=== PATIENT | female | born 1995 | race Caucasian/White ===

== ENCOUNTER 2016-09-17 13:29 | Emergency (ER) | payer OTHER ==
[2016-09-17 15:02] VITALS: BP 117/61
--- NOTE | 2016-09-17 15:20 | UC ---
Throat Pain/Nasal Terence HPI - HPI Summary HPI Summary: ST, sneezing, throat-clearing, chills, JADE starting 4 days ago. Would like to know if she can return to work tomorrow. - History of Current Complaint Chief Complaint: UCGeneralIllness Stated Complaint: FEVER, SORE THROAT Time Seen by Provider: 09/17/16 15:05 Hx Obtained From: Patient Hx Last Menstrual Period: 09/04/16 ?: No Onset/Duration: Gradual Onset, Lasting Days Severity: Mild Cough: Nonproductive Associated Signs & Symptoms: Positive: Nasal Discharge. Negative: Fever, Vomiting, Rash - Allergies/Home Medications Allergies/Adverse Reactions: Allergies Allergy/AdvReac Type Severity Reaction Status Date / Time No Known Allergies Allergy Verified 06/28/12 14:40 Home Medications: Home Medications Norethindrone Acet & Eth Estra [Microgestin 1.5/30 1.5-30 mg-Mcg] 1 tab PO DAILY 09/17/16 [History Confirmed 09/17/16] PMH/Surg Hx/FS Hx/Imm Hx Respiratory History Of: Reports: Asthma - Surgical History Surgical History: None - Family History Known Family History: Positive: Hypertension - Social History Occupation: Employed Full-time Lives: With Family Alcohol Use: None Substance Use Type: None Smoking Status (MU): Never Smoked Tobacco - Immunization History Vaccination Up to Date: Yes Review of Systems Constitutional: Chills Skin: Negative Eyes: Negative ENT: Sore Throat, Nasal Discharge Respiratory: Cough Cardiovascular: Negative Gastrointestinal: Negative Genitourinary: Negative Motor: Negative Neurovascular: Negative Musculoskeletal: Negative Neurological: Negative Psychological: Negative All Other Systems Reviewed And Are Negative: Yes Physical Exam Triage Information Reviewed: Yes Appearance: Well-Appearing, No Pain Distress, Obese Vital Signs: Initial Vital Signs Temp 98.7 F 09/17/16 14:56 Pulse 89 09/17/16 14:56 Resp 16 09/17/16 14:56 BP 117/61 09/17/16 14:56 Pulse Ox 100 09/17/16 14:56 Vital Signs Reviewed: Yes Eye Exam: Normal, Other - PERRL Eyes: Positive: Conjunctiva Clear ENT: Positive: Pharynx normal, Nasal congestion, TMs normal. Negative: Pharyngeal erythema, Tonsillar swelling, Tonsillar exudate Dental Exam: Normal Neck exam: Normal Neck: Positive: Supple, Nontender, No Lymphadenopathy Respiratory Exam: Normal Respiratory: Positive: Chest non-tender, Lungs clear, Normal breath sounds, No respiratory distress, No accessory muscle use Cardiovascular Exam: Normal Cardiovascular: Positive: RRR, No Murmur Musculoskeletal Exam: Normal Neurological Exam: Normal Psychological Exam: Normal Skin Exam: Normal Throat Pain/Nasal Course/Dx - Differential Dx/Diagnosis Provider Diagnoses: URI, likely viral Discharge - Discharge Plan Condition: Stable Disposition: HOME Patient Education Materials: Upper Respiratory Infection (ED) Referrals: Mehul May MD [Primary Care Provider] - If Needed Additional Instructions: Rapid strep negative. Call or return if you develop increasing fever, shortness of breath, chest pain , bloody sputum, or otherwise worsen. If you have not improved at all after several days, contact your primary care physician or return here.
== END 2016-09-17 15:22 | disposition home or self-care (01) ==
LOC: UCCORT 13:29
DX: J06.9 Acute upper respiratory infection, unspecified (principal); E66.9 Obesity, unspecified
CPT/HCPCS: 87651; 99211; G0463

== ENCOUNTER 2016-10-16 15:06 | Emergency (ER) | payer OTHER ==
[2016-10-16 15:45] VITALS: BP 131/72
--- NOTE | 2016-10-16 16:03 | UC ---
Throat Pain/Nasal Terence HPI - HPI Summary HPI Summary: complaint of nasal congestion and cough that started approx 5 days ago intermittent sore throat intermittent sinus pressure post nasal drip wheezing and cough is worse at night using her albuterol inhaler approx2-3xday since she has been sick denies fever and chills, ear pain taking OTC cough and cold medicine, mucinex - History of Current Complaint Chief Complaint: UCRespiratory Stated Complaint: COUGH Time Seen by Provider: 10/16/16 15:47 Hx Obtained From: Patient Hx Last Menstrual Period: 2 wks ago - Allergies/Home Medications Allergies/Adverse Reactions: Allergies Allergy/AdvReac Type Severity Reaction Status Date / Time No Known Allergies Allergy Verified 10/16/16 15:45 PMH/Surg Hx/FS Hx/Imm Hx Previously Healthy: Yes Respiratory History Of: Reports: Asthma - Surgical History Surgical History: None - Family History Known Family History: Positive: Hypertension Negative: Cardiac Disease, Diabetes - Social History Occupation: Employed Full-time Lives: With Family Alcohol Use: None Substance Use Type: None Smoking Status (MU): Never Smoked Tobacco - Immunization History Vaccination Up to Date: Yes Review of Systems Constitutional: Negative Skin: Negative Eyes: Negative ENT: Sore Throat, Nasal Discharge Respiratory: Cough Cardiovascular: Negative Gastrointestinal: Negative Genitourinary: Negative Motor: Negative Neurovascular: Negative Musculoskeletal: Negative Neurological: Negative Psychological: Negative All Other Systems Reviewed And Are Negative: Yes Physical Exam Triage Information Reviewed: Yes Appearance: No Pain Distress, Well-Nourished Vital Signs: Initial Vital Signs Temp 97.4 F 10/16/16 15:41 Pulse 86 10/16/16 15:41 Resp 18 10/16/16 15:41 BP 131/72 10/16/16 15:41 Pulse Ox 100 10/16/16 15:41 Vital Signs Reviewed: Yes Eyes: Positive: Conjunctiva Clear ENT: Positive: Pharyngeal erythema, Nasal congestion, Nasal drainage, TMs normal Neck: Positive: No Lymphadenopathy Respiratory: Positive: Decreased breath sounds - at the bases, Wheezing Cardiovascular: Positive: RRR, No Murmur, Pulses Normal Abdomen Description: Positive: Nontender, Soft Bowel Sounds: Positive: Present Musculoskeletal: Positive: No Edema Neurological Exam: Normal Psychological Exam: Normal Skin Exam: Normal Re-Evaluation - Re-Evaluation First Eval Re-Evaluation Time: 16:20 Change: Improved Throat Pain/Nasal Course/Dx - Differential Dx/Diagnosis Differential Diagnosis/HQI/PQRI: Pharyngitis, Sinusitis, URI, Other - asthma exacerbation Provider Diagnoses: asthma exacerbation Discharge - Discharge Plan Condition: Stable Disposition: HOME Prescriptions: Azithromycin TAB* [Zithromax TAB (Z-MARCOS) 250 mg #6 tabs] 2 tab PO .TODAY, THEN 1 DAILY #1 marcos predniSONE TAB* [Deltasone TAB*] 50 mg PO DAILY #5 tab Patient Education Materials: Asthma (ED) Referrals: Mehul May MD [Primary Care Provider] - Additional Instructions: Please take antibiotic and prednisone as directed Use your albuterol inhaler every 4-6 hours when needed for wheezing, shortness of breath or uncontrolled coughing. Increase fluids and rest Take acetaminophen or ibuprofen for fever or pain Please review your discharge instructions. If your symptoms do not improve please call your primary care provider or return to urgent care.
[2016-10-16] MEDS ORDERED: Albuterol/Ipratropium NEB.SOL* Albuterol 2.5 MG/Ipratropium 0.5 MG 3 ML INH ONE (16:05)
== END 2016-10-16 16:29 | disposition home or self-care (01) ==
LOC: UCEAST 15:06
DX: J45.901 Unspecified asthma with (acute) exacerbation (principal)
CPT/HCPCS: 99212; A9270-GY; G0463

== ENCOUNTER 2017-08-31 10:47 | Emergency (ER) | payer BC, OTHER ==
[2017-08-31 12:43] VITALS: BP 114/67
--- NOTE | 2017-08-31 13:01 | UC ---
Throat Pain/Nasal Terence HPI - HPI Summary HPI Summary: Patient has had increased sinus pressure and ear pain, some cough, but afebrile. she may be . - History of Current Complaint Chief Complaint: UCRespiratory Stated Complaint: SINUS Time Seen by Provider: 08/31/17 12:49 Hx Obtained From: Patient Hx Last Menstrual Period: 07/07/17 ?: No - unknown Onset/Duration: Sudden Onset, Lasting Days Severity: Moderate Pain Intensity: 6 Cough: Nonproductive Associated Signs & Symptoms: Positive: Dysphagia, Sinus Discomfort, Nasal Discharge - Allergies/Home Medications Allergies/Adverse Reactions: Allergies Allergy/AdvReac Type Severity Reaction Status Date / Time No Known Allergies Allergy Verified 08/31/17 12:32 Home Medications: Home Medications Cetirizine* [ZyrTEC 10 MG TAB*] 10 mg PO QPM 08/31/17 [History Confirmed ] Fluticasone Furoate-Vilanterol [Breo Ellipta 200-25 Mcg/INH] 1 inh IN DAILY [History Confirmed 08/31/17] Ibuprofen [Ibuprofen 200 MG] 800 mg PO Q8HR PRN 08/31/17 [History Confirmed ] PMH/Surg Hx/FS Hx/Imm Hx Previously Healthy: Yes - Surgical History Surgical History: None - Family History Known Family History: Positive: Hypertension Negative: Cardiac Disease, Diabetes - Social History Alcohol Use: Rare Substance Use Type: None Smoking Status (MU): Never Smoked Tobacco - Immunization History Vaccination Up to Date: Yes Review of Systems Constitutional: Negative Skin: Negative Eyes: Negative ENT: Sore Throat, Ear Ache, Nasal Discharge, Sinus Congestion Respiratory: Cough Cardiovascular: Negative Gastrointestinal: Negative Genitourinary: Negative Motor: Negative Neurovascular: Negative Musculoskeletal: Negative Neurological: Headache Psychological: Negative Is Patient Immunocompromised?: No All Other Systems Reviewed And Are Negative: Yes Physical Exam Triage Information Reviewed: Yes Appearance: Ill-Appearing, Pain Distress, Obese Vital Signs: Initial Vital Signs Temp 99 F 08/31/17 12:36 Pulse 80 08/31/17 12:36 Resp 18 08/31/17 12:36 BP 114/67 08/31/17 12:36 Pulse Ox 98 08/31/17 12:36 Vital Signs Reviewed: Yes Eye Exam: Normal ENT: Positive: Pharyngeal erythema, TM bulging, TM dull - left ear, serous otitis in right Dental Exam: Normal Neck exam: Normal Neck: Positive: Supple, Nontender, No Lymphadenopathy Respiratory Exam: Normal Respiratory: Positive: Chest non-tender, Lungs clear, Normal breath sounds Cardiovascular Exam: Normal Cardiovascular: Positive: RRR, No Murmur, Pulses Normal Abdominal Exam: Normal Abdomen Description: Positive: Nontender, No Organomegaly, Soft Bowel Sounds: Positive: Present Musculoskeletal Exam: Normal Neurological Exam: Normal Psychological Exam: Normal Skin Exam: Normal Throat Pain/Nasal Course/Dx - Course Course Of Treatment: hx obtained, exam performed ,meds reviewed, UA obtained, treated for sinusitis - Differential Dx/Diagnosis Differential Diagnosis/HQI/PQRI: Laryngitis, Otitis Media, Pharyngitis, Sinusitis, URI Provider Diagnoses: sinusitis Discharge - Discharge Plan Condition: Stable Disposition: HOME Patient Education Materials: Sinusitis (ED) Referrals: KEMAL Jones [Primary Care Provider] - Additional Instructions: 1. Take the medication as prescribed. 2. YOur test was negative 3. Increase fluid intake and get plenty of rest.
== END 2017-08-31 13:34 | disposition home or self-care (01) ==
LOC: UCCORT 10:47
DX: J32.9 Chronic sinusitis, unspecified (principal); E66.9 Obesity, unspecified; Z32.02 Encounter for pregnancy test, result negative
CPT/HCPCS: 84702; 99212; G0463

== ENCOUNTER 2018-03-20 16:52 | Emergency (ER) | payer BC ==
[2018-03-20 17:32] VITALS: BP 140/73
--- NOTE | 2018-03-20 17:44 | UC ---
Throat Pain/Nasal Terence HPI - HPI Summary HPI Summary: pt presents with c/o nasal congestion, cough, sinus pressure and pain X 10 days. Pt states that symptoms have worsened over the last two to three days and "nothing is working" otc to "make her feel better". Pt reports that she takes a daily antihistamine, was taking nyquil, dayquil combination with no improvement. - History of Current Complaint Chief Complaint: UCRespiratory Stated Complaint: SINUS COMPLAINT (X 1 WEEK) Time Seen by Provider: 03/20/18 17:25 Hx Obtained From: Patient Hx Last Menstrual Period: 03/16/18 ?: No Onset/Duration: Sudden Onset, Lasting Weeks, Still Present, Worse Since - onset Severity: Moderate Pain Intensity: 5 Cough: Productive Associated Signs & Symptoms: Positive: Sinus Discomfort Related History: Seasonal Allergies - Epiglottits Risk Factors Epiglottis Risk Factors: Negative - Allergies/Home Medications Allergies/Adverse Reactions: Allergies Allergy/AdvReac Type Severity Reaction Status Date / Time No Known Allergies Allergy Verified 03/20/18 17:32 Home Medications: Home Medications Guaifen/Phenyleph/Acetaminophn [Severe Sinus Congest-Pain Cplt] 2 tab PO ONCE PRN 03/20/18 [History Confirmed 03/20/18] PMH/Surg Hx/FS Hx/Imm Hx Previously Healthy: Yes - Surgical History Surgical History: None - Family History Known Family History: Positive: Hypertension Negative: Cardiac Disease, Diabetes - Social History Occupation: Employed Full-time Lives: With Family Alcohol Use: Rare Substance Use Type: None Smoking Status (MU): Never Smoked Tobacco Have You Smoked in the Last Year: No - Immunization History Vaccination Up to Date: Yes Review of Systems Constitutional: Negative Skin: Negative Eyes: Negative ENT: Sinus Congestion, Sinus Pain/Tenderness Respiratory: Cough Cardiovascular: Negative Gastrointestinal: Negative Genitourinary: Negative Motor: Negative Neurovascular: Negative Musculoskeletal: Negative Neurological: Headache Psychological: Negative Is Patient Immunocompromised?: No All Other Systems Reviewed And Are Negative: Yes Physical Exam Triage Information Reviewed: Yes Appearance: Well-Appearing Vital Signs: Initial Vital Signs Temp 97.9 F 03/20/18 17:26 Pulse 88 03/20/18 17:26 Resp 17 03/20/18 17:26 BP 140/73 03/20/18 17:26 Pulse Ox 99 03/20/18 17:26 Vital Signs Reviewed: Yes Eye Exam: Normal ENT: Positive: Sinus tenderness Dental Exam: Normal Neck exam: Normal Respiratory Exam: Normal Cardiovascular Exam: Normal Musculoskeletal Exam: Normal Neurological Exam: Normal Psychological Exam: Normal Skin Exam: Normal Throat Pain/Nasal Course/Dx - Differential Dx/Diagnosis Differential Diagnosis/HQI/PQRI: Sinusitis, URI Provider Diagnoses: sinusitis Discharge - Sign-Out/Discharge Documenting (check all that apply): Patient Departure - Discharge Plan Condition: Stable Disposition: HOME Prescriptions: Amoxicillin PO (*) [Amoxicillin 875 MG (*)] 875 mg PO Q12H #20 tab Patient Education Materials: Sinusitis (ED) Referrals: Elyse Renee [Primary Care Provider] - If Needed - Billing Disposition and Condition Condition: STABLE Disposition: Home Attestation Statement User Type: Provider - I was available for consult. This patient was seen by the JOVANA. The patient was not presented to, seen by, or examined by me. -Zhanna
== END 2018-03-20 17:52 | disposition home or self-care (01) ==
LOC: UCCORT 16:52
DX: J32.9 Chronic sinusitis, unspecified (principal)
CPT/HCPCS: 99212; G0463

== ENCOUNTER 2018-08-26 15:07 | Emergency (ER) | payer BC ==
[2018-08-26 16:11] VITALS: BP 144/70
[2018-08-26 16:41] LABS: Influenza A Molecular NEGATIVE (Negative); Influenza B Molecular NEGATIVE (Negative)
--- NOTE | 2018-08-26 17:05 | UC ---
Respiratory Complaint HPI - HPI Summary HPI Summary: 23 yo WF presents with sinus pains, PND, cough, congestion associated with new onset bodyaches x 2 days. - History of Current Complaint Chief Complaint: UCGeneralIllness Stated Complaint: SINUSES (FLU EXPOSURE) Time Seen by Provider: 08/26/18 16:09 Hx Last Menstrual Period: 08/22/18 ?: Yes Onset/Duration: Sudden Onset, Lasting Days Severity Initially: Moderate Severity Currently: Moderate Pain Intensity: 6 - Allergies/Home Medications Allergies/Adverse Reactions: Allergies Allergy/AdvReac Type Severity Reaction Status Date / Time No Known Allergies Allergy Verified 08/26/18 16:11 PMH/Surg Hx/FS Hx/Imm Hx - Surgical History Surgical History: Yes Surgery Procedure, Year, and Place: [place] teeth - Family History Known Family History: Positive: Hypertension Negative: Cardiac Disease, Diabetes - Social History Alcohol Use: Rare Substance Use Type: None Smoking Status (MU): Never Smoked Tobacco Have You Smoked in the Last Year: No - Immunization History Vaccination Up to Date: Yes Review of Systems All Other Systems Reviewed And Are Negative: Yes Constitutional: Positive: Chills, Fatigue Skin: Positive: Negative Eyes: Positive: Negative ENT: Positive: Sore Throat, Nasal Discharge, Sinus Congestion, Sinus Pain/ Tenderness. Negative: Ear Ache Respiratory: Positive: Negative, Cough Cardiovascular: Positive: Negative Gastrointestinal: Positive: Negative Genitourinary: Positive: Negative Motor: Positive: Negative Neurovascular: Positive: Negative Musculoskeletal: Positive: Negative Neurological: Positive: Negative Physical Exam - Summary Physical Exam Summary: Vital Signs Reviewed: Yes Appearance: Positive: Well-Appearing Skin: Positive: Warm Head/Face: Positive: Normal Head/Face Inspection Eyes: Positive: Normal, EOMI, [place] ENT: Positive: Normal ENT inspection, mild pharyngeal erythema w/o exudates Neck: Positive: Supple Respiratory/Lung Sounds: Positive: Clear to Auscultation Cardiovascular: Positive: Normal, RRR, S1, S2 Abdomen Positive: Nontender, Soft Musculoskeletal: Positive: Normal Neurological: Positive: CN Intact II-XII Psychiatric: Positive: Normal Vital Signs: Initial Vital Signs Temp 36.9 C 08/26/18 16:06 Pulse 98 08/26/18 16:06 Resp 16 08/26/18 16:06 BP 144/70 08/26/18 16:06 Pulse Ox 100 01/23/19 16:06 Vital Signs Reviewed: Yes UC Diagnostic Evaluation - Laboratory O2 Sat by Pulse Oximetry: 100 Respiratory Course/Dx - Course Course Of Treatment: rapid flu negative, wait and see for aabx only if sx owrsen in 1 week - Differential Dx/Diagnosis Provider Diagnosis: Viral syndrome, Acute inflammation of nasal sinus Discharge - Sign-Out/Discharge Documenting (check all that apply): Patient Departure All imaging exams completed and their final reports reviewed: Yes - Discharge Plan Condition: Stable Disposition: HOME Prescriptions: Amoxicillin PO (*) [Amoxicillin 500 MG CAP*] 500 mg PO Q12H 7 Days #14 cap Referrals: Elyse Renee [Primary Care Provider] - - Billing Disposition and Condition Condition: STABLE Disposition: Home
== END 2018-08-26 17:16 | disposition home or self-care (01) ==
LOC: UCCORT 15:07
DX: B34.9 Viral infection, unspecified (principal); J32.9 Chronic sinusitis, unspecified; R52 Pain, unspecified
CPT/HCPCS: 99212; G0463

== ENCOUNTER 2019-07-17 21:20 | Inpatient (IN) | payer OTHER ==
[2019-07-18] MEDS ORDERED: Nalbuphine* 10 MG/ML 1 ML VIAL IM ONE (00:22)
[2019-07-18] MEDS ORDERED: Promethazine INJ(RESTRICTED)* 25 MG/ML 1 ML VIAL IM ONE (00:23)
--- NOTE | 2019-07-18 00:32 | PN ---
L&D Outpatient: Visit - Reproductive Information Estimated Due Date: 07/21/19 Gestational Age: 39 Weeks and 4 Days : 1 Para: 0 - Reason for Visit Visit Reason: Pt reports UCs starting around 1600, getting stronger. Also some decreased movement, although since arriving on unit she reports active FM. - Antepartal Records Antepartal Record: Reviewed, Complicated by: - obesity, depression/ anxiety - Patient History Patient History Significant: Yes Patient History Significant For: depression/ anxiety, asthma, eczema, migraine Review of Systems Constitutional: Uncomfortable CV Complaint: No Respiratory: Shortness of Breath: No Gastrointestinal: Normal Bowel Movement, Nausea, Vomiting Genitourinary: No Dysuria, No Bleeding, No Leaking Fluid Musculoskeletal: No Epigastric Pain, Back Pain, Contractions Neurological: No Headache, No Visual Changes Movement: Normal L&D Outpatient: Exam Vitals - Most Recent: T-98.5, P-101, R-20, BP-131/91 - Cervical Exam Cervical Exam: On arrival was 2-3, 60%, -1. Now 3cm/ 60%/ -1. Vtx - Abdominal Exam Abdomen Exam: Non-Tender, Fundal Height Consistent with Dates - Membranes Membrane Status: Intact - Ultrasound/Biophysical Profile Ultrasound Status: Not Done EFM Findings - External Monitor Findings Baseline Heart Rate: 140 External Monitor Findings: Accelerations Present, No Pattern of Variable or Late Decelerations, Variability Moderate, Baseline Stable Contractions: Regular, Mild, Moderate, < 45 Seconds, 45-90 Seconds Contraction Frequency: 2-3 L&D Outpatient: Asses/Plan Assessment: 24 year old at 39 4/7 weeks gestation in early labor vs prodromal labor, no evidence of acidemia, membranes intact. BP elevated, maybe due to pain / discomfort vs gestational HTN/ PEC. - Discharge Diagnosis Discharge Diagnosis: Supervision-Normal Preg Plan: Continue Observation - Pt requests pain relief, will give Nubain and Phenergan. Will check PEC labs when IV started. Encourage rest. Will recheck cervix when she is awake again.
[2019-07-18] MEDS ORDERED: Lactated Ringers 1000 ML Bag* 1,000 ML IV ONE ×2 (01:06→07:39)
[2019-07-18] MEDS ORDERED: Buffered Lidocaine 1% SYRIN* 1 ML/SYRINGE INTRADERM ONE (01:06)
--- NOTE | 2019-07-18 01:20 | HP ---
General Information - General Information Maternal Age: 24 Grav: 1 Para: 0 SAB: 0 IEA: 0 Estimated Due Date: 07/21/19 Gestational Age in Weeks/Days: 39 4/7 Maternal Blood Type and Rh: O Positive - Results this Serology/RPR Result: Non-Reactive Rubella Result: Immune HBsAg Result: Negative HIV Result: Negative GBS Culture Result: Positive Past Medical History Delivery History: See Records Pertinent Past Medical History: See Records - asthma, depression/ anxiety, eczema, migraine Pertinent Past Surgical History: See Records - wisdom tooth extraction Pertinent Family History: Non-Contributory - Antepartal Records Antepartal Records: Reviewed, Complicated by: - obesity Review of Systems Constitutional: Uncomfortable CV Complaint: No Respiratory: Shortness of Breath: No Gastrointestinal: Nausea, Vomiting Genitourinary: No Dysuria, No Bleeding, No Leaking Fluid Musculoskeletal: No Epigastric Pain, Back Pain, Contractions Neurological: No Headache, No Visual Changes Movement: Normal Exam Allergies/Adverse Reactions: Allergies No Known Allergies Allergy (Verified 07/17/19 21:55) T-98.4, P-102, R-20, BP-131/90 - Measurements Height: 5 ft 6 in Weight: 112.945 kg Weight in lbs: 249.942019 Body Mass Index (BMI): 40.1 Pre- Weight: 111.13 kg - Exam Breast: Breast Exam Deferred CVA: No CVA Tenderness Extremities: Edema - bilateral pedal Heart: Normal Rhythm/Heart Sounds HEENT: No Significant Findings Lungs: Clear Bilaterally Rectal: Rectal Exam Deferred Thyroid: No Thyromegaly - Abdominal Exam Abdomen Exam: Non-Tender, Fundal Height Consistent with Dates - Ultrasound/Biophysical Profile Ultrasound Status: Not Done Targeted Exam Findings See L&D Outpatient Visit Provider Note for Findings: Yes Estimated Weight: 8# Cervical Exam: 3cm Effacement: 60% Station: -1 Presenting Part: Vertex Membrane Status: Intact Bleeding/Discharge: None EFM Findings - External Monitor Findings Baseline Heart Rate: 140 External Monitor Findings: Accelerations Present, No Pattern of Variable or Late Decelerations, Variability Moderate, Baseline Stable Contractions: Regular, Moderate, 45-90 Seconds Assessment/Plan - Assessment 24 year old at 39 4/7 weeks gestation in early labor, no evidence of acidemia or chorioamnionitis. - Obstetrical Risk Factors Obstetrical Risk Factors: GBS Positive, Obesity - Plan Plan: Antibiotic Prophylaxis, Admit - Anticipate Vaginal Delivery - Date/Time of Admission Date of Admission: 07/18/19 Time of Admission: 00:55
[2019-07-18] MEDS ORDERED: Lactated Ringers 1000 ML Bag* 1,000 ML IV SCH ×3 (02:00→20:00)
--- NOTE | 2019-07-18 02:07 | PN ---
Progress Note - Progress Note Date of Service: 07/18/19 SOAP: Subjective: Pt reports resting well following nitrous, does wake for some ctx. She got up to bathroom then when she got to bed experienced SROM. Objective: SROM to meconium stained fluid FHR: 140 per doppler UCs: Q3 minutes Assessment: Pt in active labor. Meconium stained fluid, but FHR not suggestive of acidemia. Plan: Initiate GBS prophylaxis. Epidural if desired. Will check CBC, CMP, uric acid, urine protein d/t elevated BPs.
[2019-07-18] MEDS ORDERED: Penicillin G Potassium IV* 5,000,000 UNITS in NS 0.9% 100 ML* 100 ML IVPB ONE (03:00)
[2019-07-18 03:09] LABS: Urine Appearance Clear; Urine Bilirubin Negative (Negative); Urine Blood 1+ (Negative); Urine Color Yellow; Urine Glucose Negative (Negative); Urine Ketones Negative (Negative); Urine Nitrite Negative (Negative); Urine Protein Negative (Negative); Urine Specific Gravity 1.006 (1.010-1.030); Urine Urobilinogen Negative (Negative)
[2019-07-18 03:11] LABS: ABS Basophils 0.1 10^3/ul (0-0.2); ABS Lymphocytes 1.2 10^3/ul (1.0-4.8); ABS Monocytes 0.6 10^3/ul (0-0.8); ABS Neutrophils 14.5 10^3/ul (1.5-7.7); Eosinophil % 0.3 %; Hematocrit 38 % (35-47); Hemoglobin 12.7 g/dL (12.0-16.0); Lymphocyte % 7.4 %; Mean Corpuscular HGB Conc 33 g/dL (31-36); Mean Corpuscular Hemoglobin 27 pg (27-31); Mean Corpuscular Volume 81 fL (80-97); Mean Platelet Volume 8.3 fL (7.4-10.4); Platelet Count 334 10^3/uL (150-450); Red Blood Count 4.72 10^6 /uL (3.70-4.87); Red Cell Distribution Width 15 % (10-15); Urine Bacteria Absent (Absent); Urine Red Blood Cell Trace(0-2/hpf) (Absent); Urine Squamous Epithelial Cell Present (Absent); Urine White Blood Cell Trace(0-5/hpf) (Absent); White Blood Count 16.4 10^3/uL (3.5-10.8)
[2019-07-18 03:26] LABS: Albumin 3.5 g/dL (3.2-5.2); BUN/Creatinine Ratio 12.6 (8-20); Calcium 8.9 mg/dL (8.6-10.3); EGFR African American 96.8 (>60); Globulin 3.5 g/dL (2-4); Potassium 3.6 mmol/L (3.5-5.0); Total Bilirubin 0.7 mg/dL (0.2-1.0); Uric Acid 4.4 mg/dL (2.3-6.6)
[2019-07-18 03:29] LABS: Urine Benzodiazepine Screen None Detected (None Detect); Urine Opiates Screen None Detected (None Detect)
--- NOTE | 2019-07-18 03:32 | PN ---
Progress Note - Progress Note Date of Service: 07/18/19 Note: IV placed with ultrasound guidance after multiple attempts. Pt experiencing vomiting with some ctx, still relaxed from the medications between ctx, but uncomfortable during. She is going to try to rest. Abx infusing.
--- NOTE | 2019-07-18 04:52 | PN ---
Progress Note - Progress Note Date of Service: 07/18/19 SOAP: Subjective: Pt in tub, coping well with ctx. Lots of family members in room. Objective: FHR: 140 per auscultation Ctx: 3-5 minutes BP: 139/80 Temp:97.6 Assessment: Pt appears to be progressing into active labor, coping well. No evidence of acidemia or chorioamnionitis Plan: Offered options for pain relief, including further use of the tub, nitrous oxide , PO pain meds. Pt prefers to stay in the tub for now.
[2019-07-18] MEDS ORDERED: Bupivacaine 0.25% SDV PF* 10 ML VIAL INJ ONE (07:09)
[2019-07-18] MEDS ORDERED: OBEPIDURAL* 250 ML EPIDURAL ONE (07:13)
--- NOTE | 2019-07-18 07:15 | PN ---
Progress Note - Progress Note Date of Service: 07/18/19 SOAP: Subjective: Pt very uncomfortable, anxious but coping fairly well. Family at bedside. Awaiting epidural; anesthesiologist placing epidural in another pt's room. Objective: FHR:135 per auscultation before, during, and after a ctx UCs:2-3 minutes BP: 149/77 Meconium stained fluid Assessment: Pt appears to be making good progress. No evidence of acidemia or chorioamnionitis. Plan: Fellow here to place labor epidural. Continuous EFM after epidural placement. Anticipate progression to .
[2019-07-18] MEDS: Penicillin G Potassium IV* 2,500,000 UNITS in NS 0.9% 100 ML* 100 ML IVPB SCH ×4 (07:34→23:42)
[2019-07-18] MEDS ORDERED: EPHEDrine (Pressors)* 50 MG/ML VIAL IV PUSH PRN (07:39)
[2019-07-18] MEDS ORDERED: Sodium Citrate/Citric Acid* 15 ML UDC PO PRN (07:39)
[2019-07-18] MEDS ORDERED: Famotidine TAB* 20 MG PO PRN (07:39)
[2019-07-18] MEDS ORDERED: Phenylephrine 40 MCG/ML SYRINGE IV PUSH PRN (07:39)
[2019-07-18] MEDS ORDERED: OBEPIDURAL* 250 ML EPIDURAL SCH (08:00)
--- NOTE | 2019-07-18 09:23 | PN ---
Progress Note - Progress Note Date of Service: 07/18/19 SOAP: Subjective: Pt resting comfortably with epidural. Objective: FHR:Baseline 125/ moderate variability/ + accels/ no decels UCs: 3-7 minutes Temp: 97.6 Meconium stained fluid Assessment: Pt comfortable with epidural. No evidence of chorioamnionitis or acidemia. Plan: Recheck cervix in a few hours or when pt uncomfortable. Anticipate .
--- NOTE | 2019-07-18 12:57 | PN ---
Progress Note - Progress Note Date of Service: 07/18/19 SOAP: Subjective: Pt comfortable with epidural. Objective: Cervix: fully dilated/ +1/ vtx FHR: Baseline 145/ moderate variability/ + accels/ no decels UCs: 2-4 minutes BP: 129/59 Assessment: Pt making good progress. No evidence of acidemia. Plan: Will labor down for a bit. Anticipate .
[2019-07-18] MEDS ORDERED: Oxytocin in LR* 20 UNITS/1,000 ML BAG IVPB ONE (14:09)
--- NOTE | 2019-07-18 14:45 | PN ---
Progress Note - Progress Note Date of Service: 07/18/19 SOAP: Subjective: Pt started pushing effectively, then pushing began to be less effective. Pt comfortable with ctx. Objective: FHR: Baseline 155, moderate variability/no accels/ no decels UCs: 2-5 Pt fully dilated, +2 Temp: 98.9 Assessment: Pt initially made good progress with pushing, then less so. Some tachycardia developed, although pt was afebrile. Plan: Took break from pushing to labor down. Administered D5LR. Will initiate low dose Pitocin augmentation. Will restart pushing soon.
[2019-07-18] MEDS ORDERED: Lidocaine 1% INJ* 10 MG/ML 30 ML SDV ONE (18:17)
[2019-07-18] MEDS ORDERED: Glycerin ADULT SUPP PR PRN (19:40)
[2019-07-18] MEDS ORDERED: Dibucaine 1% 28.35 GM TUBE PR PRN (19:40)
[2019-07-18] MEDS ORDERED: Witch Hazel PAD* JAR TOPICAL PRN (19:40)
[2019-07-19] MEDS: Docusate CAP* 100 MG PO SCH ×4 (00:18→19:39)
[2019-07-19] MEDS: Ibuprofen TAB* 600 MG PO PRN ×3 (00:19→17:56)
[2019-07-19 05:39] LABS: ABS Eosinophils 0.1 10^3/ul (0-0.6); ABS Lymphocytes 2.7 10^3/ul (1.0-4.8); ABS Monocytes 1.2 10^3/ul (0-0.8); ABS Neutrophils 10.9 10^3/ul (1.5-7.7); Eosinophil % 0.9 %; Hematocrit 30 % (35-47); Lymphocyte % 18.2 %; Mean Corpuscular HGB Conc 33 g/dL (31-36); Mean Corpuscular Hemoglobin 27 pg (27-31); Mean Corpuscular Volume 81 fL (80-97); Mean Platelet Volume 7.9 fL (7.4-10.4); Platelet Count 247 10^3/uL (150-450); Red Blood Count 3.72 10^6 /uL (3.70-4.87); Red Cell Distribution Width 15 % (10-15)
--- NOTE | 2019-07-19 07:07 | PROCNOTE ---
[facility]: Delivery Note - Delivery A Date of : 07/18/19 Time of : 16:40 [place] Sex: Female Weight at : 2.955 kg Score 1 Minute: 8 Score 5 Minutes: 9 Gestational Age in Weeks and Days at Delivery: 39 Weeks and 4 Days Delivery Method: Spontaneous Vaginal Labor: Spontaneous Did Patient attempt ?: N/A, No Previous Amniotic Fluid: Meconium Anesthesia/Analgesia: CEI for Labor, Nitrous-Labor Delivered By: Angelic Mijares - Nursery Level of Nursery: Regular/Bedside - Perineum Perineal Injury: Perineal Laceration, 1st Degree Perineal Repair: By Delivering Practioner - Events Delivery Events of Note: Pitocin During Labor, Supplemental O2 to Mother, Full Course of Antibiotics - Additional Delivery Notes Additional Delivery Notes: Pt admitted to L&D with spontaneous labor and SROM to meconium stained fluid. Pt made steady labor progress, eventually requesting and receiving an epidural for pain relief to good effect. Pt continued to progress and eventually reached full dilation with an urge to push. Pt initially pushed effectively with steady descent, but then began to lose momentum. Pushing break taken and Pitocin augmentation initiated. After pushing resumed pt pushed effectively with slow but steady descent. Eventually infant brought to . Pt with extensive phase, declined episiotomy. FHR was stable throughout . Eventually pt birthed the head, and shoulders followed without difficulty. with short cord, placed low on maternal abdomen. Infant meconium stained but had good spontaneous cry and good tone, dried and stimulated. After cord pulsation ceased cord clamped x2 and cut by infant's father. Placenta soon delivered spontaneously, erwin side, meconium stained. After initial expression of some clots fundus firm and bleeding minimal. Examination of the perineum revealed first degree laceration, repaired using absorbable suture resulting in good hemostasis and tissue approximation. Mother and stable at this time, anticipate normal course.
[2019-07-19] MEDS ORDERED: Ferrous Gluconate TAB* 324 MG TAB PO SCH (09:00)
[2019-07-19] MEDS: Acetaminophen TAB* 325 MG PO PRN ×2 (12:22→19:39)
[2019-07-20] MEDS: Ibuprofen TAB* 600 MG PO PRN ×3 (00:10→14:34)
[2019-07-20] MEDS: Docusate CAP* 100 MG PO SCH ×2 (08:13→14:35)
[2019-07-20 09:10] VITALS: BP 127/76
== END 2019-07-20 18:08 | disposition home or self-care (01) | DRG 560 ==
LOC: MCHOBOUT 21:20 → MCHOB 07-18 00:54
PROVIDERS: ADMIT Midwife; ATTEND Midwife
PROC: 10E0XZZ Delivery of Products of Conception, External Approach (ICD-10-PCS; principal; 2019-07-18)
PROC: 0HQ9XZZ Repair Perineum Skin, External Approach (ICD-10-PCS; 2019-07-18)
PROC: 4A1HXCZ Monitoring of Products of Conception, Cardiac Rate, External Approach (ICD-10-PCS; 2019-07-18)
DX: O99.824 Streptococcus B carrier state complicating childbirth (principal); Z37.0 Single live birth; O99.214 Obesity complicating childbirth; O77.0 Labor and delivery complicated by meconium in amniotic fluid; O70.0 First degree perineal laceration during delivery; O76 Abnormality in fetal heart rate and rhythm complicating labor and delivery; R03.0 Elevated blood-pressure reading, without diagnosis of hypertension; L30.9 Dermatitis, unspecified; O99.72 Diseases of the skin and subcutaneous tissue complicating childbirth; Z3A.39 39 weeks gestation of pregnancy; Z88.8 Allergy status to other drugs, medicaments and biological substances; Z28.21 Immunization not carried out because of patient refusal
CPT/HCPCS: 36415; 80053; 80307; 81003; 81015; 84550; 85025; 86850; 86900; 86901; 87086; A9270-GY; J2300; J2540; J2550; J3490

== ENCOUNTER 2023-02-03 02:40 | Inpatient (IN) ==
[2023-02-03] MEDS ORDERED: Penicillin G Potassium IV 5,000,000 UNITS in NS 0.9% 100 ml BAG 100 ML IVPB ONE (03:35)
[2023-02-03] MEDS ORDERED: Ondansetron 4 mg VIAL 2 MG/ML 2 ml VIAL IV PRN (04:05)
[2023-02-03 04:11] LABS: Urine Appearance Cloudy; Urine Bilirubin Negative (Negative); Urine Blood Negative (Negative); Urine Color Yellow; Urine Glucose Negative (Negative); Urine Ketones Negative (Negative); Urine Nitrite Negative (Negative); Urine Protein Negative (Negative); Urine Specific Gravity 1.009 (1.002-1.030); Urine Urobilinogen Negative (Negative)
[2023-02-03 04:11] LABS: Urine Creatinine Concentration 45.05 mg/dL (20.00-320.00)
[2023-02-03 04:20] LABS: Urine Benzodiazepine Screen None Detected (None Detect); Urine Cannabinoids Screen None Detected (None Detect); Urine Opiates Screen None Detected (None Detect)
[2023-02-03 04:20] LABS: Urine TP Creat Ratio 0.15 mg/mg
[2023-02-03 04:28] LABS: Urine Bacteria 1+ (Absent); Urine Red Blood Cell Trace(0-2/hpf) (Absent); Urine Squamous Epithelial Cell Present (Absent); Urine White Blood Cell 2+(11-20/hpf) (Absent)
[2023-02-03 04:41] LABS: ABS Eosinophils 0.1 10^3/uL (0.0-0.5); ABS Lymphocytes 2.2 10^3/uL (1.0-4.8); ABS Monocytes 0.7 10^3/uL (0.0-0.9); ABS Neutrophils 7.7 10^3/uL (1.5-7.6); ABS Nucleated RBC 0.01 10^3/ul; Eosinophil % 1.3 %; Hematocrit 38.2 % (35-45); Hemoglobin 12.8 g/dL (11.5-14.3); Lymphocyte % 20.5 %; Mean Corpuscular Hemoglobin 25.9 pg (27-33); Mean Corpuscular Hgb Conc 33.4 g/dL (31-36); Mean Corpuscular Volume 77.5 fL (80-97); Mean Platelet Volume 8.3 fL (7.5-11.2); Nucleated Red Blood Cells % 0.1 /100 WBC (0.0-0.4); Platelet Count 335 10^3/uL (150-450); Red Blood Count 4.93 10^6/uL (3.63-4.92); Red Cell Distribution Width 14.6 % (12-17); White Blood Count 10.8 10^3/uL (3.8-11.8)
[2023-02-03] MEDS ORDERED: Oxytocin in LR 20,000 MILLI.UNIT/1,000 ML BAG IV ONE (04:56)
[2023-02-03 05:02] LABS: Albumin 3.5 g/dL (3.2-5.2); Calcium 9.5 mg/dL (8.6-10.3); Creatinine, Serum 0.62 mg/dL (0.51-0.95); Globulin 2.9 g/dL (2-4); Potassium 4.1 mmol/L (3.5-5.0); Total Protein 6.4 g/dL (6.4-8.9); Uric Acid 3.4 mg/dL (2.3-6.6); eGFR CKD-EPI 125.1 (>60)
[2023-02-03 05:03] LABS: Albumin/Globulin Ratio 1.2 (1-3); Total Bilirubin 0.5 mg/dL (0.2-1.0)
[2023-02-03] MEDS ORDERED: Witch Hazel PAD JAR TOPICAL PRN (05:12)
[2023-02-03] MEDS ORDERED: Dibucaine 1% OINT 28.35 GM TUBE PR PRN (05:12)
[2023-02-03] MEDS ORDERED: Oxytocin in LR 20,000 MILLI.UNIT/1,000 ML BAG IV SCH (05:15)
[2023-02-03] MEDS ORDERED: Lactated Ringers 1000 ml BAG 1,000 ML IV SCH (06:00)
[2023-02-03] MEDS ORDERED: Penicillin G Potassium IV 3,000,000 UNITS in NS 0.9% 100 ml BAG 100 ML IVPB SCH (08:30)
[2023-02-03] MEDS: FLUTICASONE SALMETEROL INH SCH ×2 (10:06→21:32)
[2023-02-04 08:50] LABS: ABS Basophils 0.1 10^3/uL (0.0-0.1); ABS Eosinophils 0.3 10^3/uL (0.0-0.5); ABS Monocytes 0.7 10^3/uL (0.0-0.9); Eosinophil % 2.7 %; Hematocrit 35.1 % (35-45); Hemoglobin 11.6 g/dL (11.5-14.3); Lymphocyte % 29.9 %; Mean Corpuscular Hgb Conc 33.1 g/dL (31-36); Mean Corpuscular Volume 78.7 fL (80-97); Mean Platelet Volume 7.8 fL (7.5-11.2); Platelet Count 285 10^3/uL (150-450); Red Blood Count 4.46 10^6/uL (3.63-4.92); Red Cell Distribution Width 14.5 % (12-17); White Blood Count 10.1 10^3/uL (3.8-11.8)
[2023-02-04] MEDS: FLUTICASONE SALMETEROL INH SCH ×2 (10:12→20:37)
[2023-02-05 08:07] VITALS: BP 123/69
== END 2023-02-05 10:19 | disposition home or self-care (01) | DRG 560 ==
LOC: MCHOBOUT 02:40 → MCHOB 03:42
PROVIDERS: ADMIT Midwife; ATTEND Midwife